=== PATIENT | male | born 1975 | race Caucasian/White ===

== ENCOUNTER 2018-12-02 05:24 | Emergency (ER) | payer OTHER, BC ==
[2018-12-02] MEDS ORDERED: BUFFERED LIDOCAINE 10 ML SYRINGE SUBQ STA (05:30)
[2018-12-02 05:31] VITALS: BP 130/97
[2018-12-02] MEDS ORDERED: TETANUS/DIPHTHERIA/PERTUSSIS 0.5 ML SYRINGE IM ONE (05:38)
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
[2018-12-02] MEDS ORDERED: BACITRACIN OINT TOP ONE (05:55)
== END 2018-12-02 06:05 | disposition home or self-care (01) ==
LOC: ED 05:24
DX: S81.011A Laceration without foreign body, right knee, initial encounter (principal); Y35.811A Legal intervention involving manhandling, law enforcement official injured, initial encounter; Y92.832 Beach as the place of occurrence of the external cause; Y99.0 Civilian activity done for income or pay
CPT/HCPCS: 12002; 90715; 99282; 99283; A9270